=== PATIENT | female | born 1955 | race Caucasian/White ===

== ENCOUNTER 2023-11-02 13:09 | Emergency (ER) | payer BC, SELFPAY ==
[2023-11-02 13:13] VITALS: BP 117/73
--- NOTE | 2023-11-02 14:43 | ED.GENMED ---
History of Present Illness
<Frank Hodge PA-C - Last Filed: 11/02/23 15:41>
General
Chief Complaint: Musculo-Skeletal Complaint
Source: patient
Time Seen by Provider: 11/02/23 14:31
Travel History
Have you had any contact with someone who has COVID-19?: No
Do you have any symptoms of coronavirus? Fever > 100 degrees, chills, cough, shortness of breath, sore throat, loss of taste or smell, muscle aches, or headache?: No
History of Present Illness
History of Present Illness:
68-year-old female presenting the emergency department for evaluation after she was playing pickle ball and injured her right foot/ankle noting she heard a pop/cracking sound causing her to fall to the ground and unable to bear weight since. She
denies any previous history of injury or surgery. She does note a deformity along the calcaneal region of her foot/ankle
Past History
<Frank Hodge PA-C - Last Filed: 11/02/23 15:41>
Past History
ED Past Medical History: Other (low back pain has seen Dr. Baker in the past (04/2022))
ED Past Surgical History: Orthopedic
Social History
Tobacco: Non-smoker
Alcohol: Occasional
Drug: None
Personal:
Living: with family
Employment: Not employed
Review of Systems
<Frank Hodge PA-C - Last Filed: 11/02/23 15:41>
Review of Systems
All Other Systems: ROS reviewed and negative except as documented in HPI and ROS
Phy Exam
<Frank Hodge PA-C - Last Filed: 11/02/23 15:41>
Physical Exam
Physical Exam:
GENERAL: Alert , in no apparent distress
EYE: conjunctiva clear
Head: Normocephalic atraumatic
NECK: Supple,
ENT: mmm.
LUNGS: no acute respiratory distress
NEUROLOGICAL: Alert and oriented
SKIN: Warm and dry, skin intact.
MUSCULOSKELETAL: Right foot/ankle: There is deformity with skin tenting to the posterior calcaneus with laxity over the calcaneal tendon. Patient is still able to dorsiflex and plantarflex but does have pain while doing so. Easily palpable pedal
pulses. Cap refills less than 2 seconds and sensation is grossly intact to light touch.
PSYCH: Normal and appropriate interaction.
Scores
<Frank Hodge PA-C - Last Filed: 11/02/23 15:41>
Heart Failure Risk
Heart Failure Risk Score: Not Applicable
Heart Score for Chest Pain Patients
STEMI patient?: Not applicable
Withdrawal Assessment of Alcohol
Withdrawal Assessment Completed?: Not applicable
Course
<Frank Hodge PA-C - Last Filed: 11/02/23 15:41>
Orders/Labs/Results
Orders:
Orders
11/02/23 13:15
Ankle, Right 3 view CR [CR Ankle - Right Min 3 Views *] Urgent
Comment:
Reason For Exam: pain and swelling
11/02/23 14:43
Crutches-Treatment ONCE
Oxycodone [Roxicodone] 5 mg PO NOW STA
Vital Signs
Initial and Last Documented VS:
Initial Vital Signs
Temp Pulse Resp BP Pulse Ox
98.1 F 69 18 117/73 98
11/02/23 13:13 11/02/23 13:13 11/02/23 13:13 11/02/23 13:13 11/02/23 13:13
Last Documented Vital Signs
Temp Pulse Resp BP Pulse Ox
98.1 F 69 18 117/73 98
11/02/23 13:13 11/02/23 13:13 11/02/23 13:13 11/02/23 13:13 11/02/23 13:13
<Erasmo Grayson DO - Last Filed: 11/02/23 14:59>
Orders/Labs/Results
Orders:
Orders
11/02/23 13:15
Ankle, Right 3 view CR [CR Ankle - Right Min 3 Views *] Urgent
Comment:
Reason For Exam: pain and swelling
11/02/23 14:43
Crutches-Treatment ONCE
Oxycodone [Roxicodone] 5 mg PO NOW STA
Vital Signs
Initial and Last Documented VS:
Initial Vital Signs
Temp Pulse Resp BP Pulse Ox
98.1 F 69 18 117/73 98
11/02/23 13:13 11/02/23 13:13 11/02/23 13:13 11/02/23 13:13 11/02/23 13:13
Last Documented Vital Signs
Temp Pulse Resp BP Pulse Ox
98.1 F 69 18 117/73 98
11/02/23 13:13 11/02/23 13:13 11/02/23 13:13 11/02/23 13:13 11/02/23 13:13
Procedures
<Frank Hodge PA-C - Last Filed: 11/02/23 15:41>
Splinting/Sling Placement
Right Lower Leg:
Procedure completed by: Naveen
Pre-splint extermity exam: neurovascular intact
Type of splint: posterior short leg
Splint material: other (3 inch Ortho-Glass)
Splint checked by provider?: Yes
Normal distal neurovascular exam?: Yes
<Frank Hodge PA-C - Last Filed: 11/02/23 15:41>
MDM/Problems Addressed
Differential Diagnosis Includes:
Calcaneal fracture, calcaneal tendon rupture, calf strain
MDM/Problems Addressed:
68-year-old female present emergency department for evaluation of right heel/calcaneal injury. X-ray was ordered from triage which shows a large avulsive injury of the calcaneus concerning for a calcaneal fracture and based off of the x-ray there
is also concern for calcaneal tendon injury. Patient will be placed in a posterior short leg splint. Will contact Ortho to ensure no further care within the emergency department is needed and continued outpatient management
<Frank Hodge PA-C - Last Filed: 11/02/23 15:41>
*Radiology
Radiology exam reviewed: preliminary read by ED provider (Calcaneal fracture)
*Pulse Oximetry
Patient hypoxic: no
*Critical Care Note
Total Time (30-74mins, 75-104mins- exclusive of procedures): Not Applicable
<Frank Hodge PA-C - Last Filed: 11/02/23 15:41>
Patient Management
Discussion with other providers: Web Content & Social Media Manager
Escalation/DeEscalation of care consider admission/obs:
Picture of x-ray was sent to on-call orthopedist via [employer] text. Orthopedics is in agreement with plan and advised patient to call the office in the morning and they will help expedite a close follow-up. Patient advised to be nonweightbearing.
Motrin/Tylenol as needed for pain. Prescription for oxycodone was provided to be used as needed for breakthrough pain. Patient aware of cautions to the emergency department.
ED Attending Note
<Frank Hodge PA-C - Last Filed: 11/02/23 15:41>
-
Portions of this chart may have been created with voice recognition software.� Occasional wrong word or��sound alike� substitutions may have occurred due to the inherent limitations of voice recognition software.
<Erasmo Grayson DO - Last Filed: 11/02/23 14:59>
ED Attending Note
Patient seen and examined by attending physician: Yes
I performed the substantive portion of visit, reviewed & personally made and approve the management plan that is documented in note by myself or JULIA.: Yes
Discharge Plan
Departure
Patient Disposition: Home (Routine Discharge)
Date of Disposition: 11/02/23
Time of Disposition: 14:43
Patient with high blood pressure during this ER visit?: No
Discharge Problem:
Calcaneus fracture, right, calcaneal tendon injury
Instructions: Heel Fracture (DC)
Prescriptions:
New
oxycodone 5 mg tablet
5 mg PO BID PRN (Reason: Pain) Qty: 8 0RF
No Action
multivitamin Tablet
1 tab PO DAILY
ibuprofen [Advil] 200 mg Tablet
400 mg PO Q6H PRN (Reason: PAIN)
cholecalciferol (vitamin D3) [Vitamin D3] 50 mcg (2,000 unit) Tablet
50 mcg PO DAILY
Probiotic 3 billion cell Capsule
3,000 mmu cells PO DAILY
acetaminophen [Tylenol] 325 mg Tablet
650 mg PO Q6H PRN (Reason: pain )
Referrals:
Tarah Strong MD [Family Provider] -
Denys Lazo MD [Active] - (Call for appointment [facility])
Interventions
Interventions:
*ED COVID-19 Vaccine History Last Done: 11/02/23 13:13
*Nursing Disposition Last Done: 11/02/23 15:10
ED-Musculoskeletal Assessment Last Done: 11/02/23 14:57
Discharge Date and Time
Discharge Date/Time: 11/02/23 15:12
Print Language: SYRIAC
[2023-11-02] MEDS: ROXICODONE 5 MG PO (14:54)
== END 2023-11-02 15:12 | disposition home or self-care (01) ==
LOC: EMR 13:09
PROVIDERS: EMERGENCY PHYSICIAN Emergency Medicine; FAMILY PHYSICIAN Emergency Medicine
DX: S92.001A Unspecified fracture of right calcaneus, initial encounter for closed fracture (principal); W19.XXXA Unspecified fall, initial encounter
CPT/HCPCS: 99283; 29515; 73610

== ENCOUNTER 2023-11-04 14:51 | Day surgery (SDC) | payer BC, SELFPAY ==
[2023-11-04 07:09] VITALS: BMI 23.6
[2023-11-04 07:24] LABS: Hematocrit 36.5 % (37.0-47.0); Hemoglobin 12.5 g/dL (12.0-16.0); Mean Corp Hgb Conc. 34.2 g/dL (33.0-37.0); Mean Corpuscular Hgb 31.5 pg (27.0-31.0); Mean Corpuscular Volume 91.9 fL (81.0-99.0); Mean Platelet Volume 11.9 fL (7.4-10.4); Platelet Count 223 10^3/uL (130-400); Red Blood Cell Count 3.97 10^6/uL (4.20-5.40); Red Cell Dist. Width 12.1 % (11.5-14.5); White Blood Cell Count 7.3 10^3/uL (4.8-10.8)
[2023-11-04 07:37] LABS: Blood Urea Nitrogen 16 mg/dl (7-17); Calcium 9.8 mg/dl (8.4-10.2); Carbon Dioxide 25 mmol/L (22-30); Chloride 104 mmol/L (98-107); Estimated Creatinine Clearance 67 ml/min; Glucose 114 mg/dl (70-99); Sodium 136 mmol/L (135-145); eGFR > 60.00
[2023-11-04 14:54] VITALS: BP 129/78
[2023-11-04 14:59] VITALS: BMI 23.6
[2023-11-04] MEDS: NORMOSOL-R 1000 IV (15:02)
[2023-11-04] MEDS: TYLENOL 1000 MG PO (15:02)
[2023-11-04] MEDS: CELEBREX 200 MG PO (15:03)
[2023-11-04 18:25] VITALS: BP 129/78; BP 139/94
[2023-11-04] MEDS: DEMEROL 12.5 MG IV (18:31)
[2023-11-04 18:34] VITALS: BP 145/67
[2023-11-04] MEDS: DILAUDID 0.5 MG IV (18:42)
[2023-11-04 18:45] VITALS: BP 135/82
[2023-11-04 19:00] VITALS: BP 136/79
[2023-11-04 19:15] VITALS: BP 134/87
== END 2023-11-04 19:46 | disposition home or self-care (01) ==
LOC: SDS 14:51
PROVIDERS: ATTENDING PHYSICIAN Student in an Organized Health Care Education/Training Program; FAMILY PHYSICIAN Emergency Medicine
DX: S92.011A Displaced fracture of body of right calcaneus, initial encounter for closed fracture (principal); X58.XXXA Exposure to other specified factors, initial encounter; M67.01 Short Achilles tendon (acquired), right ankle
CPT/HCPCS: 28415; 27687; 73650; 76000; 80048; 85027; 93005; C1713

== ENCOUNTER → 2023-12-30 06:27 | Day surgery (SDC) | payer BC, SELFPAY ==
[2023-12-30] VITALS (10 sets, daily range): BP systolic 118–147; BP diastolic 67–91; BMI 22.7
[2023-12-30] MEDS: CELEBREX 200 MG PO (14:17)
[2023-12-30] MEDS: TYLENOL 1000 MG PO (14:17)
[2023-12-30] MEDS: NORMOSOL-R 1000 IV (14:17)
[2023-12-30] MEDS: DEMEROL 12.5 MG IV (18:52)
[2023-12-30] MEDS: DILAUDID 0.25 MG IV (19:19)
== END ==
LOC: SDS 06:27
PROVIDERS: ATTENDING PHYSICIAN Student in an Organized Health Care Education/Training Program
DX: T84.84XA Pain due to internal orthopedic prosthetic devices, implants and grafts, initial encounter (principal); M62.461 Contracture of muscle, right lower leg; Y83.8 Other surgical procedures as the cause of abnormal reaction of the patient, or of later complication, without mention of misadventure at the time of the procedure; S92.011 Displaced fracture of body of right calcaneus; X58.XXXD Exposure to other specified factors, subsequent encounter
CPT/HCPCS: 28415; 27691; 73650; 76000; C1713

== ENCOUNTER 2024-01-26 06:30 | Day surgery (SDC) | payer BC, SELFPAY ==
--- NOTE | 2024-01-21 15:50 | VNURNOTE ---
Home Health Liaison spoke with patient at 1530 to discuss [facility] nurse/therapy, visits, schedule and homebound status. Patient is agreeable and understands that visits at home will be 2-3 x per week to assess and teach medical management and assist
with wound VAC management.
Call to [facility] orthopedics, spoke to Mee to confirm home VAC to be ordered, Form emailed.
[facility] contact information sent to patient via text.
Patient is aware that [facility] will contact them for start of care in 1-2 days after discharge from .
[facility] referral completed in [facility].
--- NOTE | 2024-01-23 12:18 | WOUNDNOTE ---
WO RN note: Alexa from notified this travel writer that the ready home vac was approved for Friday's surgery. Dropped off the Ready home vac pump (serial number [id number]) and supplies to MIGUEL A lBas at the OR desk who signed the proof of delivery
form. Patient's surgery is scheduled for Friday01/26/24.
--- NOTE | 2024-01-26 09:37 | CM ---
CM notified of patient being in SDS and needing a wound vac and VN. Patient has a referral already placed to [facility]. Per notes, wound vac and supplies delivered to department.
CM updated [facility] that patient is in SDS via [facility] and asked if [facility] had any further needs.
Awaiting reply.
[2024-01-26 11:32] VITALS: BMI 22.7
[2024-01-26 11:33] VITALS: BMI 22.7
[2024-01-26 11:34] VITALS: BP 142/88
[2024-01-26] MEDS: NORMOSOL-R 1000 IV (11:50)
[2024-01-26] MEDS: TYLENOL 1000 MG PO (12:00)
[2024-01-26] MEDS: CELEBREX 200 MG PO (12:00)
[2024-01-26 12:11] LABS: Blood Urea Nitrogen 15 mg/dl (7-17); Estimated Creatinine Clearance 77 ml/min
[2024-01-26 12:23] LABS: Hemoglobin 12.2 g/dL (12.0-16.0)
[2024-01-26 13:33] VITALS: BP 118/84
[2024-01-26 13:45] VITALS: BP 125/110
[2024-01-26 14:00] VITALS: BP 134/76
[2024-01-26 14:11] VITALS: BP 133/77
[2024-01-26 14:15] VITALS: BP 138/112
--- NOTE | 2024-01-26 14:30 | WOUNDNOTE ---
[facility] RN note: Patient in SPD for discharge s/p R ankle surgery with home wound vac. Instructed patient and spouse how to turn on/off home vac, how to change canister, how to disconnect and reconnect vac tubing if needed, how to trouble shoot vac
alarm (i.e. Apply strip of vac drape or Tegaderm if air leak), how to plug unit in. Instructed couple if rizwana bleeding occurs, to clamp vac tubing and turn off vac and call 911. VN planned for vac changes. Instructed patient to call [employer] support
10/02 or VN if having a problem with vac seal. Couple aware the vac dressing should not loose it's suction for more than 2 hours. Patient had signed proof home vac of delivery form. Will fax to [employer]. Wound vac supplies with patient. Patient instructed
to elevate R heel off bed. She is aware she is NWB RLE.
--- NOTE | 2024-01-26 16:40 | WOUNDNOTE ---
[facility] RN note: Faxed with proof of delivery form for the home vac (Serial # [id number]) to Sandra Mcgovern from .
--- NOTE | 2024-01-27 08:58 | CM ---
CM was made aware that [facility] does not have orders for wound vac care. CM updated [facility] rn liaison to assist with obtaining orders.
== END 2024-01-26 14:45 | disposition home or self-care (01) ==
LOC: SDS 06:30
PROVIDERS: ATTENDING PHYSICIAN Student in an Organized Health Care Education/Training Program; FAMILY PHYSICIAN Emergency Medicine
DX: T81.31XA Disruption of external operation (surgical) wound, not elsewhere classified, initial encounter (principal); I96 Gangrene, not elsewhere classified; Y83.4 Other reconstructive surgery as the cause of abnormal reaction of the patient, or of later complication, without mention of misadventure at the time of the procedure
CPT/HCPCS: 15275; 20680; 15004; Q4108; 82565; 84520; 85018; 87075

== ENCOUNTER 2024-06-14 10:37 | Day surgery (SDC) | payer BC, MEDICARE, SELFPAY ==
[2024-06-10 10:14] VITALS: BMI 22.7
[2024-06-10 10:48] LABS: % Basophils 0.8 % (0-2); % Eosinophils 4.2 % (0-6); % Immature Granulocytes 0.5 % (0-0.5); % Lymphocytes 27.6 % (20.5-51.1); % Monocytes 9.3 % (1.7-9.3); % Neutrophils 57.6 % (42.2-75.2); Absolute Basophils 0.1 10^3/uL (0-0.2); Absolute Eosinophils 0.3 10^3/uL (0-0.7); Absolute Lymphocytes 1.7 10^3/uL (1.2-3.4); Absolute Monocytes 0.6 10^3/uL (0.1-0.6); Absolute Neutrophils 3.6 10^3/uL (1.4-6.5); Hemoglobin 12.5 g/dL (12.0-16.0); Mean Corp Hgb Conc. 32.1 g/dL (33.0-37.0); Mean Corpuscular Hgb 30.6 pg (27.0-31.0); Mean Corpuscular Volume 95.6 fL (81.0-99.0); Mean Platelet Volume 11.9 fL (7.4-10.4); Nucleated Red Blood Cells % 0 %; Platelet Count 226 10^3/uL (130-400); Red Blood Cell Count 4.08 10^6/uL (4.20-5.40); Red Cell Dist. Width 12.1 % (11.5-14.5); White Blood Cell Count 6.2 10^3/uL (4.8-10.8)
[2024-06-10 12:02] LABS: Blood Urea Nitrogen 16 mg/dl (7-17); Calcium 10.1 mg/dl (8.4-10.2); Carbon Dioxide 27 mmol/L (22-30); Chloride 102 mmol/L (98-107); Estimated Creatinine Clearance 67 ml/min; Glucose 84 mg/dl (70-99); Potassium 4.3 mmol/L (3.5-5.1); Sodium 141 mmol/L (135-145); eGFR > 60.00
[2024-06-14] VITALS (11 sets, daily range): BP systolic 136–158; BP diastolic 75–90; BMI 22.7
[2024-06-14] MEDS: TYLENOL 1000 MG PO (11:07)
[2024-06-14] MEDS: CELEBREX 200 MG PO (11:07)
[2024-06-14] MEDS: DILAUDID 0.25 MG IV (16:16)
[2024-06-14] MEDS: DEMEROL 12.5 MG IV (16:37)
== END 2024-06-14 18:12 | disposition home or self-care (01) | DRG 575 ==
LOC: SDS 10:37
PROVIDERS: ATTENDING PHYSICIAN Student in an Organized Health Care Education/Training Program; FAMILY PHYSICIAN Emergency Medicine
PROC: 0QBL0ZZ Excision of Right Tarsal, Open Approach (ICD-10-PCS; 2024-06-14)
PROC: 0HXMXZZ Transfer Right Foot Skin, External Approach (ICD-10-PCS; 2024-06-14)
PROC: 0JBQ0ZZ Excision of Right Foot Subcutaneous Tissue and Fascia, Open Approach (ICD-10-PCS; 2024-06-14)
DX: T81.42XA Infection following a procedure, deep incisional surgical site, initial encounter (principal); Y83.8 Other surgical procedures as the cause of abnormal reaction of the patient, or of later complication, without mention of misadventure at the time of the procedure; L97.312 Non-pressure chronic ulcer of right ankle with fat layer exposed; M81.0 Age-related osteoporosis without current pathological fracture; Z79.82 Long term (current) use of aspirin; Z79.1 Long term (current) use of non-steroidal anti-inflammatories (NSAID); Z79.891 Long term (current) use of opiate analgesic; Z80.3 Family history of malignant neoplasm of breast; Z80.1 Family history of malignant neoplasm of trachea, bronchus and lung
CPT/HCPCS: 25130; 20680; 36415; 80048; 85025; 87070; 87075; 87077; 87186; 87205; 93005; C1713

== ENCOUNTER → 2024-06-22 08:01 | Outpatient (REF) | payer BC, MEDICARE, SELFPAY ==
[2024-06-22 08:19] VITALS: BP 129/84; BP_SYST 78
== END ==
LOC: RADI 08:01
PROVIDERS: ATTENDING PHYSICIAN Internal Medicine Infectious Disease; FAMILY PHYSICIAN Emergency Medicine; REFERRING PHYSICIAN Student in an Organized Health Care Education/Training Program
DX: T84.69XA Infection and inflammatory reaction due to internal fixation device of other site, initial encounter (principal); Y79.2 Prosthetic and other implants, materials and accessory orthopedic devices associated with adverse incidents; B96.5 Pseudomonas (aeruginosa) (mallei) (pseudomallei) as the cause of diseases classified elsewhere
CPT/HCPCS: 36573; C1751

== ENCOUNTER 2024-06-22 09:15 | Outpatient (RCR) | payer BC, MEDICARE, SELFPAY ==
[2024-06-22 09:56] VITALS: BP 135/71
[2024-06-22] MEDS: MAXIPIME 62.5 MG IV (10:02)
--- NOTE | 2024-06-22 10:17 | PTCARENOTE ---
patient arrived for one time dose of cefepime iv and continuing q8h treatment at home. patient unaware of what home infusion company would be following her at home and has not been contacted regarding this. I spoke to Dr. Ford office and was
informed that [facility] would be taking over care for home IV antibiotics. Logan mcclellan will be reaching out to patient after contacting [facility] with plan. Patient aware.
[2024-06-22 10:50] VITALS: BP 132/78
== END 2024-06-23 09:09 | disposition home or self-care (01) ==
LOC: OID 09:15
PROVIDERS: ATTENDING PHYSICIAN Internal Medicine Infectious Disease; FAMILY PHYSICIAN Emergency Medicine
DX: T84.60XA Infection and inflammatory reaction due to internal fixation device of unspecified site, initial encounter (principal); T84.629A Infection and inflammatory reaction due to internal fixation device of unspecified bone of leg, initial encounter; Y93.89 Activity, other specified
CPT/HCPCS: 36573; 96365; C1751

== ENCOUNTER → 2024-07-24 10:41 | Outpatient (REF) | payer BC, MEDICARE, SELFPAY | LOC: REG 10:41 | PROVIDERS: ATTENDING PHYSICIAN Internal Medicine Infectious Disease | DX: R19.7 Diarrhea, unspecified (principal) | CPT/HCPCS: 87324; 87449 ==

== ENCOUNTER → 2025-04-21 17:09 | Outpatient (REF) | payer BC, MEDICARE, SELFPAY | LOC: WDC 17:09 | PROVIDERS: ATTENDING PHYSICIAN Obstetrics & Gynecology Gynecology | DX: Z12.31 Encounter for screening mammogram for malignant neoplasm of breast (principal) | CPT/HCPCS: 77063; 77067 ==